=== PATIENT | female | born 1970 | race Caucasian/White ===

== ENCOUNTER 2017-05-06 03:47 | Emergency (ER) | payer BC ==
[~2017-05-06] VITALS: Ht 180.3 cm; Wt 68.2 kg
[~2017-05-06 03:47] MED LIST: ALBUTEROL SULFAT3 M3 IH; OMNICEF 300MG300 MG PO; TUSS PO
[2017-05-06 03:52] VITALS: BP 132/82; TEMP 97.9
[2017-05-06] MEDS ORDERED: PREDNISONE20 MG PO (04:21)
[2017-05-06] MEDS ORDERED: ZITHROMAX 250M250 MG PO (04:21)
[2017-05-06] MEDS ORDERED: TUSS PO (04:21)
[2017-05-06] MEDS ORDERED: PROAIR HFA0.09 MG/AC IH (05:15)
[2017-05-06 05:26] VITALS: PULSE 75
== END 2017-05-06 05:23 | disposition home or self-care (01) ==
LOC: COL.ER 03:47
DX: J20.9 Acute bronchitis, unspecified (principal); J45.901 Unspecified asthma with (acute) exacerbation
CPT/HCPCS: J7512